=== PATIENT | female | born 1955 | race Caucasian/White ===

== ENCOUNTER 2016-09-01 14:16 | Inpatient (IN) | payer BC ==
--- NOTE | ~2016-09-01 | EHP ---
ER History and Physical [place] [address] [place]. [address] NAME: EVELYN OSUNA : 53 STATUS : DIS IN PAT#: [id number] AGE: 60 ADM/REG DATE : 09/01/16 MR#: [id number] REPORT SERV DATE: 11/04/16 DICTATED BY: KRISTIN EPPERSON DATE: 11/04/16 REPORT STATUS : Draft TRANSCRIBED BY: DEZ DATE: 11/04/16 ADDENDUM: The patient presented to the ER with history of altered mental status, fever, increased pain, high blood sugars, that history came from EMS and the facility that she was at. The patient is nonverbal and further history was not available and full review of systems was not available. JULIETTE/DEZ Kristin Epperson M.D. / [id number] CC: Joo Guerrero MD
--- NOTE | ~2016-09-01 | CN ---
Consultation Report [facility] [address] [place]. [address] NAME: EVELYN OSUNA : 53 STATUS : ADM IN PAT#: [id number] AGE: 60 ADM/REG DATE : 09/01/16 MR#: [id number] REPORT SERV DATE: 09/02/16 DICTATED BY: ANDREW CAM III DATE: 09/02/16 REPORT STATUS : Draft TRANSCRIBED BY: MODMariajose DATE: 09/02/16 DATE OF CONSULTATION: 09/02/2016 HISTORY OF PRESENT ILLNESS: The patient is a 60-year-old white female, well known to this physician from several other admissions in [facility], evaluation admitted today with sepsis, UTI, and infected decubitus ulcers and change in mental status. 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 She has had chronic debilitation with dysphagia and has been nonverbal except for grunts and hand shakes. She has been maintained with a feeding tube in her stomach and ileal conduit for her urinary diversion. She was noted to have over the last few days some fever and what was perceived as confusion. She usually can answer yes or shake her head, but was not really able to do that prior to admission. She was also noted to have more drainage from her ulcers. The patient's daughter states that she had been eating some pureed diet at skilled facility. 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 She has had a wound VAC to the heel in the past, but not recently. The patient has a colostomy, urostomy, and is diabetic type 2 insulin dependent. She has a neurogenic bladder which resulted in her needing the ileal conduit. PAST MEDICAL HISTORY: Consistent with the Friedreich's ataxia and history of coronary artery disease with prior stent placement. She has the diabetes and history of hypertension. She has had multiple decubiti in the past. She has had infections with MRSA Providencia, ESBL E. coli as well as Morganella morganii, ESBL Proteus. ALLERGIES: SHE IS ALLERGIC TO PENICILLIN AND CLINDAMYCIN. MEDICATIONS: At the nursing facility included Tylenol, Rocephin, Plavix, Pepcid, iron sulfate, Stewardson, Lantus, Levaquin, Ativan, Glucophage, Remeron, vitamins, Paxil, Lyrica, Xarelto, and Florastor. REVIEW OF SYSTEMS: 14-system review was not beneficial. SOCIAL HISTORY: Negative for alcohol, tobacco, and drugs. The patient was a resident of [facility] prior to transfer. PHYSICAL EXAMINATION: GENERAL: The patient is a debilitated white female, in no acute distress. HEENT: Not significant. She does not answer questions and she was only able to respond to the discomfort. HEART: She had tachycardia with no murmur. ABDOMEN: Soft with ostomies as described. Consultation Report [place] [id number] [place]. [address] NAME: EVELYN OSUNA : 53 STATUS : ADM IN [facility]#: [id number] AGE: 60 ADM/REG DATE : 09/01/16 MR#: [id number] REPORT SERV DATE: 09/02/16 DICTATED BY: ANDREW CAM III DATE: 09/02/16 REPORT STATUS : Draft TRANSCRIBED BY: DEZ DATE: 09/02/16 WOUNDS: She has a right heel ulcerated area that is 7 x 5 x 0.6 cm which is a Dias II with bone palpable, but much better than seen in the past without active infection noted. She has a right hip that is the most acutely ill that is with an open ulcers 4 x 5 x 4.5 stage IV ulceration with tunneling at 12 o'clock position that is 9 cm that extends up underneath the erythematous indurated area with a secondary opening with pus exuding. She has a left hip that has a 3.5 x 4 x 3.5, deep stage IV ulceration undermining circumferentially 3 to [address] with a soupy base. She has a sacral ulcer that is 5 x 4 x 0.6 area of partial skin loss stage II decubitus. IMPRESSION: She has sepsis likely multifactorial, but certainly could be related especially to the right hip which seems to be actively involved. Certainly, a likelihood that she has a urinary tract infection again which is pending. She has acute kidney injury and progressive Friedreich's ataxia considered to be in stated age, chronic anemia as well as dysphagia. I would recommend continued broad-spectrum antibiotics, local care offloading with a Clinitron bed. Try to improve nutrition per the tube feedings. LINK/JULISSAL Andrew Cam III, M.D. / [id number] CC: Jose R Jones M.D.
--- NOTE | ~2016-09-01 | IDS ---
Interim Discharge Summary [facility] [address] [place]. [address] NAME: EVELYN OSUNA : 53 STATUS : ADM IN [facility]#: [id number] AGE: 60 ADM/REG DATE : 09/01/16 MR#: [id number] REPORT SERV DATE: 09/06/16 DICTATED BY: DATE: REPORT STATUS : Draft TRANSCRIBED BY: MODL DATE: 09/06/16 ADMISSION DATE: 09/01/2016 DISCHARGE DATE: [facility] CONSULTANTS: Include Christiano Garcia M.D. of Infectious Disease and Dajuan Cam III, M.D. of Wound Surgery. CURRENT DIAGNOSES: 1. Severe sepsis, present at admission. 2. Fluid-responsive hypotension. 3. Acute kidney injury-resolved. 4. Catheter-associated urinary tract infection-chronic indwelling Zelaya catheter. Culture growing Providencia and extended-spectrum beta-lactamase Escherichia coli. 5. Stage III versus IV sacral decubitus ulcer and gluteal decubitus ulcer. No surgical debridement. Wound culture positive for Proteus, Enterococcus raffinosus, and diphtheroids. 6. Anemia of chronic inflammation-status post 1 unit packed red blood cells. 7. Uncontrolled insulin-dependent diabetes mellitus type 2-hemoglobin A1c 8.5. 8. Severe protein-calorie malnutrition-presently on tube feeds. 9. History of oropharyngeal dysphagia-recently consuming a pureed diet at detention facility. For formal speech therapy evaluation to assess the safety of this. 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 11.Coronary artery disease with prior stent. 12.History of hypertension. 13.Anxiety and dependence. 14.Recently diagnosed lower extremity deep vein thrombosis-June 2016. On Xarelto. 15.B12 deficiency-started on replacement. 16.Chemical code only. 17.History of colostomy. 18.History of ileal conduit and urostomy. IMAGIN. Portable chest x-ray 09/01/2016, shows no acute cardiopulmonary disease. 2. Bilateral lower extremity venous Doppler ultrasound 09/02/2016, negative for thrombus. PERTINENT LABS: Initial INR 2.3, initial hemoglobin 7.5, initial creatinine 1.6. Procalcitonin x2 negative. Lactate negative. LDH 56. Alkaline phosphatase 132, hemoglobin A1c 8.5, iron 21, iron-binding capacity 141, ferritin 514, folate 7.4, B12 of 273, TSH 4.4, free T4 of 1.15, cortisol 31. Initial white blood cell count 12.4. Wound cultures positive for Proteus, Enterococcus raffinosus, and diphtheroids. Urine culture positive for Providencia and extended-spectrum beta lactamase E. coli. Blood cultures times 4 negative since admission. BRIEF HISTORY: For full details, please see the previously dictated history of present Interim Discharge Summary [address] [address] NAME: EVELYN OSUNA : 53 STATUS : ADM IN PAT#: [id number] AGE: 60 ADM/REG DATE : 09/01/16 MR#: [id number] REPORT SERV DATE: 09/06/16 DICTATED BY: DATE: REPORT STATUS : Draft TRANSCRIBED BY: DEZ DATE: 09/06/[address] Becki Gagnon. This is a 60-year-old white female with severe progressive Friedreich's ataxia, who resides at the [facility] in [facility]. She was in her usual state of health until a few days before admission, when she began to display increased confusion, was less responsive, had a fever, and nursing staff there noted increased drainage from her decubitus ulcer. Evaluation in the emergency department revealed hypotension, severe sepsis, and probable ongoing wound infection as well as catheter- associated UTI. She was admitted to the Hospitalist Service for further management. HOSPITAL COURSE: The patient was admitted to the IMCU, placed on IV fluids, and initial antibiotics were meropenem and vancomycin. Past culture data was reviewed. The patient has a history of vancomycin-resistant Enterococcus as well as carbapenem-resistant organisms in the past, and so Infectious Disease was consulted to assist with the antibiotic regimen. They initially recommended continuation of vancomycin and meropenem, and changed antibiotics to cefepime and Flagyl on 09/04/2016, when culture data demonstrated growth of pathogens above. Dr. Cam was consulted to assist in management of the sacral and gluteal wounds. Unfortunately, the probability of healing these wounds is very low given the patient's functional paraplegia. This was discussed with the patient's daughter, and in fact hospice was encouraged, but she did not want to make her mother hospice measures at present because she saw that the patient was improving with fluids and antibiotics. Dr. Cam did not recommend any surgical debridement at present. The patient's urostomy bag and indwelling Zelaya catheter were changed at the time of admission. The patient's other medical issues have been largely stable this admission. The patient was able to be transferred out of the [facility] on the evening of 09/03/2016. She does demonstrate severe protein-calorie malnutrition with oropharyngeal dysphagia and nutrition consult was obtained in order to obtain tube feed recommendations. She currently is on continuous tube feeds. [facility]ly [facility], she takes tube feeds only intermittently and is able to meet the majority of her nutritional needs by mouth. The safety of this practice is questionable, and the efficacy is questionable as well given that pre-albumin was 7.0. Nonetheless, repeat speech therapy evaluation has been requested, so that we can definitively instruct the daughter on whether it is safe for her to give her mother foods by mouth or not. In response to continuous tube feeds, the patient's blood sugars became elevated, but this is currently controlled with adjustments in her insulin. Per Infectious Disease, the patient will require IV antibiotics through 09/10/2016. We were working towards discharging her back to her detention facility, but the patient's daughter is stating that she has some reservations about the care that her mother is receiving at that facility, and is seeking alternative placement. She is working with the case finishing machine adjuster on this. DISPOSITION: The patient remains hospitalized for additional IV antibiotics, speech therapy Interim Discharge Summary [address] [address] NAME: EVELYN OSUNA : 53 STATUS : ADM IN [facility]#: [id number] AGE: 60 ADM/REG DATE : 09/01/16 MR#: [id number] REPORT SERV DATE: 09/06/16 DICTATED BY: DATE: REPORT STATUS : Draft TRANSCRIBED BY: MODL DATE: 09/06/16 evaluation, and determination of discharge plan. BRENDA/DEZ Jose R Jones M.D. / [id number] CC: Jose R Jones M.D.
--- NOTE | ~2016-09-01 | IDS ---
Interim Discharge Summary [facility] [address] [place]. [address] NAME: EVELYN OSUNA : 53 STATUS : ADM IN [facility]#: [id number] AGE: 60 ADM/REG DATE : 09/01/16 MR#: [id number] REPORT SERV DATE: 09/13/16 DICTATED BY: ARTURO COATES DATE: 09/13/16 REPORT STATUS : Draft TRANSCRIBED BY: MODMariajose DATE: 09/13/16 ADMISSION DATE: 09/01/2016 DISCHARGE DATE: DIAGNOSES: 1. Sepsis. 2. Stage IV decubitus ulcers. 3. Encephalopathy. 4. Urinary tract infection. 5. Severe protein-calorie malnutrition. 6. History of chronic Friedreich's ataxia. 7. Acute kidney injury, resolved. 8. Type 2 diabetes. CONSULTANTS: 1. General Surgery/origination specialist, Dr. Dajuan Cam. 2. Infectious Disease, Dr. Christiano Garcia. HOSPITALISTS: Dr. Becki Gagnon, Dr. Jos eR Jones, Dr. Coates. HOSPITAL COURSE: Please see H and P from Dr. Gagnon and interim summary from Dr. Jones for further details. This is a 60-year-old female with a past medical history of chronic debility with Friedreich's ataxia, presented with UTI, sepsis, infected decubitus ulcers, and worsening mental status. The patient was admitted to the Hospitalist Service with a general surgery consultation for wound care. She was treated for acute kidney injury as well as sepsis. She was initiated on IV antibiotics for her urinary tract infection as well as wound cultures. The patient continues on antibiotics for treatment, however for her mental status, the patient had continued to remain nonverbal for several days with continue to cry and only moans. It was discussed with the patient's daughter concerning consideration of hospice. However, daughter was very reluctant and stated that she will discuss with the family, and still has not made a final decision at this time. However for the past two days, the patient has finally began to verbalize one-word phrases with better eye contact. She is alert. She states that, she is alright when asked how she is doing, and pain appears to be better controlled. Per origination specialist and wound care nurse, the patient's decubitus ulcers are appearing improved and not requiring I and D at this time. She continues with the wound care. The patient will be followed by Dr. Guerrero, who will attend to this patient's care. [facility]/DEZ Arturo Coates M.D. Interim Discharge Summary [address] [address] NAME: EVELYN OSUNA : 53 STATUS : ADM IN [facility]#: [id number] AGE: 60 ADM/REG DATE : 09/01/16 MR#: [id number] REPORT SERV DATE: 09/13/16 DICTATED BY: ARTURO COATES DATE: 09/13/16 REPORT STATUS : Draft TRANSCRIBED BY: DEZ DATE: 09/13/16 / [id number] CC: Arturo Coates M.D.
--- NOTE | ~2016-09-01 | CN ---
Consultation Report [facility] [address] [place]. [address] NAME: EVELYN OSUNA : 53 STATUS : ADM IN PAT#: [id number] AGE: 60 ADM/REG DATE : 09/01/16 MR#: [id number] REPORT SERV DATE: 09/14/16 DICTATED BY: ANDREW FINNEGAN DATE: 09/14/16 REPORT STATUS : Draft TRANSCRIBED BY: MODMariajose DATE: 09/14/16 PALLIATIVE CARE CONSULTATION DATE OF CONSULTATION: 09/14/2016 This is a 55-minute consultation divided. The patient was seen in followup with the patient's daughter, Shari. ALLERGIES: PENICILLINS, SULFA, WELL CLINDAMYCIN. REASON FOR CONSULTATION: A 60-year-old lady with progressive Friedreich ataxia, admitted on 09/01/2016 with alterations in mental status, signs of sepsis infections, and a stage IV decubitus in her buttocks. She is a assisted resident. Her daughter is quite insistent that she is not getting the care that she feels she needs. The patient was admitted with fever. She is normally able to say yes and no or least make those feelings known; however, she was not doing so on admission at this time. The patient is status post PEG 04/2015 with an ileal conduit, colostomy, and wound care, and requires total care. She has had prior heel osteomyelitis of the right heel and severe protein calorie malnutrition. PAST MEDICAL HISTORY: Includes insulin-dependant diabetes, coronary artery disease with a stent, multiple UTIs, hypertension, and mild CKD. She has had left hip, right heel, right great toe, and right 5th toe wounds. She is currently a variant code, receiving medications only and not receive CPR or defibrillation or ventilation or intubation. SOCIAL HISTORY: Nonsmoker and nondrinker. Her daughter Shari is her POA. She is . Hospice discussions have been attempted in the past. However, the patient's daughter basically indicates "I am not ready for that yet." When I asked her what would make her ready, she told me that if her mother had continuing infections that would not respond to treatment and even with hospitalization she did not improve that would be the point that she would consider hospice measures. FAMILY HISTORY: Remarkable for a son with Friedreich ataxia (brother of the POA). REVIEW OF SYSTEMS: System review is unobtainable. SIGNIFICANT LABORATORY WORK: Hemoglobin 7.2, hematocrit 23. Albumin 1.7, pre-albumin 13.7, low iron A1c is 8.5. PHYSICAL EXAMINATION: VITAL SIGNS: Blood pressure 131/63, respiratory rate 18, pulse 85 and regular, temperature 98 degrees, 2 L pulse ox 100%. BMI 23.8. Pain score is rated between 0, 1, 4/10 based upon facial expression. Her current weight is 147 pounds. GENERAL: Examination shows a chronically ill-appearing lady who is crying at intervals and then having incomprehensible utterances. At this point, I did call Shari and arranged to Consultation Report [address] [place]. [address] NAME: EVELYN OSUNA : 53 STATUS : ADM IN [facility]#: [id number] AGE: 60 ADM/REG DATE : 09/01/16 MR#: [id number] REPORT SERV DATE: 09/14/16 DICTATED BY: ANDREW FINNEGAN DATE: 09/14/16 REPORT STATUS : Draft TRANSCRIBED BY: DEZ DATE: 09/14/16 meet with her later in the day. The substance of above information is distilled from our conversation. At this point, the patient is about 50% edentulous. LUNGS: Her lungs are grossly clear. HEART: Regular rate and rhythm. ABDOMEN: Bowel sounds are present. PEG tube present. Ileostomy and ileal conduit are noted as is a colostomy. SKIN: Wounds were not examined. EXTREMITIES: Show trace to 1+ edema. Tone is diffusely decreased. IMPRESSION, PLAN, AND RECOMMENDATION: This is an unfortunate lady who is going to basically become a long-term resident of the [facility] at the recommendation of her time study analyst. A DNR is currently in effect with the exception of antibiotics according to her daughter, and I do not believe it has been written that way. We will be available to clarify this upon discharge. HUGO/DEZ Andrew Finnegan M.D. / [id number] CC: Joo Guerrero MD UNKNOWN
--- NOTE | ~2016-09-01 | HP ---
History And Physical [id number] [place]. [address] NAME: EVELYN OSUNA : 53 STATUS : ADM IN [facility]#: [id number] AGE: 60 ADM/REG DATE : 09/01/16 MR#: [id number] REPORT SERV DATE: 09/01/16 DICTATED BY: BECKI BLAKE DATE: 09/01/16 REPORT STATUS : Draft TRANSCRIBED BY: MODL DATE: 09/01/16 DATE OF ADMISSION: 09/01/2016 CHIEF COMPLAINT: Sepsis, UTI, infected decubitus ulcer, and increased confusion for a few days. HISTORY OF PRESENT ILLNESS: This is an unfortunate 60-year-old female, who has an extensive past medical history with progressive, debilitating, end-stage Friedreich ataxia, longstanding resident of [facility] in [place], [place], with chronic debilitation and dysphagia. The patient is nonverbal. She has a chronic PEG tube. She also has an ileal conduit who has been presenting today accompanied with her daughter who is giving the entire history from the care home facility where she received total care for her activities of daily living. For the last few days according to the daughter, she started to have some fever, worsening of her confusion. She usually can answer yes or no, and she has had drainage from her decubitus ulcer as well as signs of infection with fever. The patient's daughter is denying any nausea or vomiting, but she has fever and more confused than usual. According to the daughter, she eating a pureed diet at the care home [facility] and tube feeds at night. She did have a right heel osteomyelitis. [facility] by [facility] Cam, and she did have a Vac-Pac in the past, but no recently. Again, she has also a colostomy, urostomy, and diabetes type 2 insulin dependent. The patient did have a neurogenic bladder with resulting ileal conduit. The patient has been evaluated in the emergency room. She became hypotensive, but that resolved with vigorous IV hydration. After initial evaluation in the emergency room, Hospitalist Service has been asked for admission, further evaluation, and treatment. PAST MEDICAL HISTORY: Significant for Friedreich ataxia with chronic debility, coronary artery disease with prior stent, diabetes type 2 insulin dependent, history of hypertension. She does have a history of right heel osteomyelitis. She did have decubitus ulcer more on the right than on the left seen by Dr. Cam with anxiety with depression, prior infections with MRSA, Providencia, ESBL E coli, Morganella, ESBL, Proteus, urinary tract infections related to ileal conduit, dysphagia with PEG tube placement, as well as an ileal conduit. PAST SURGICAL HISTORY: PEG tube placement, colostomy, tubal ligation, and ileal conduit. ALLERGIES: THE PATIENT IS ALLERGIC TO PENICILLIN, SULFA, AND ALSO CLINDAMYCIN. MEDICATIONS: That she is taking at the care home facility include Tylenol, Rocephin 1 dose, Plavix, Pepcid, iron sulfate, [place], Lantus, Levaquin, Ativan, Glucophage, Remeron, multivitamin. Paxil, Lyrica, Xarelto, and Florastor. REVIEW OF SYSTEMS: A 14-point review of systems has been obtained and pertinent positive has been listed into the history of present illness. Otherwise, negative except those underlying above. SOCIAL HISTORY: No tobacco. No alcohol. No IV drugs. She is a resident at [address] [address] NAME: EVELYN OSUNA : 53 STATUS : ADM IN [facility]#: [id number] AGE: 60 ADM/REG DATE : 09/01/16 MR#: [id number] REPORT SERV DATE: 09/01/16 DICTATED BY: BECKI BLAKE DATE: 09/01/16 REPORT STATUS : Draft TRANSCRIBED BY: DEZ DATE: 09/01/16 [place], [place]. She is a . She has a daughter who helps care for her. Code status is limited, code only clinical, no intubation, no mechanical ventilation, no CPR according to patient's daughter wishes, who is the power of deputy prosecuting attorney. FAMILY HISTORY: Significant for Friedreich ataxia, stroke, diabetes, and cancer. PHYSICAL EXAMINATION: VITAL SIGNS: Currently, she has been afebrile in the emergency room, blood pressure was on arrival 81/51, heart rate was 114, respiratory rate 10-12, and saturating 98% on room air. GENERAL: Chronically ill-appearing, very debilitating female in no acute distress. She is alert and oriented x0. She does not follow any commands. She does not answer questions. HEENT: Show pupils are equal, round, and reactive to light. Extraocular movements intact. No JVD. No lymphadenopathy. Very dry mucous membranes. Trachea is midline. No cervical lymphadenopathy, inguinal or supraclavicular. CHEST: Eval shows bilateral air entry. Clear anteroposterior. No wheezes, crackles, or rhonchi appreciated. CARDIOVASCULAR: She is regular rate and rhythm. Slightly tachycardic. S1, S2 positive. No S3, no S4. No murmurs, rubs, or gallops appreciated. ABDOMEN: Soft. There is no tenderness, no guarding, no rebound. No hepatosplenomegaly appreciated. EXTREMITIES: No clubbing, cyanosis, or edema. The patient has significant decubitus ulcer on the right, it is deep one. It is at least 2-3 cm in diameter with some necrotic debris. Not really purulent drainage, but there are also breakdowns down the heels and otherwise no pallor or cyanosis appreciated. NEUROLOGIC: She is alert and oriented x0. She is not oriented to time or location. She cannot answer questions appropriately. LABORATORY DATA: Labs from today include an ABG shows 7.31, 34, 76. Her sodium is 136, potassium 4.2, chloride 107, CO2 of 18, BUN was 43, creatinine 1.61, glucose is 388. Her alkaline phosphatase 128, ALT 9, AST 10. Her lactate 1.5. Her white count 12.4, hemoglobin 7.5, hematocrit 33.7, and platelets are 529. INR is 2.3. UA is positive for nitrites as well as white cells and bacteria. Her blood cultures currently are pending. Urine cultures are pending, and wound cultures are pending as well and a chest x-ray, portable, is negative. ASSESSMENT AND PLAN: This is a very pleasant 60-year-old female, presenting to [facility] with fever, progressive encephalopathy and sepsis. 1. Sepsis, likely probable multifactorial, possibly related to urinary tract infection with chronic Zelaya catheter as well as possible infected decubitus ulcer. The patient has been in the past on broad-spectrum antibiotics, and she had a history of multidrug resistant bacteria. I am going to start initially on meropenem and vancomycin and consult Infectious Disease for further recommendation. 2. Likely urinary tract infection, related to her ileal conduit. I will check the urine culture, IV antibiotics, vigorous IV hydration. Check a CT scan of the abdomen and pelvis as well. 3. Right hip and left decubitus ulcers. We are going to consult Dr. Cam, obtain a wound care, and get wound cultures Gram stain and cultures. History And Physical [address] [address] NAME: EVELYN OSUNA : 53 STATUS : ADM IN PAT#: [id number] AGE: 60 ADM/REG DATE : 09/01/16 MR#: [id number] REPORT SERV DATE: 09/01/16 DICTATED BY: BECKI BLAKE DATE: 09/01/16 REPORT STATUS : Draft TRANSCRIBED BY: MODL DATE: 09/01/16 4. Acute kidney injury, likely multifactorial. We are going to place the patient on vigorous IV hydration. Strict I's and O's. Strict daily weights. 5. Progressive Matheus ataxia, rapidly progressive to end-stage disease. 6. Diabetes type 2, uncontrolled. Slight Accu-Cheks q.6 hours, Lantus twice a day, and check on hemoglobin A1c. 7. Dysphagia with percutaneous endoscopic gastrostomy tube. We will obtain a nutrition consult. 8. Anemia. We are going to check all her anemia studies, guaiac her stools, and transfuse 1 unit of packed red blood cells. We provide reasonable pain and nausea control as well as GI and DVT prophylaxis with SCDs. I am going to recheck ultrasound of the bilateral lower extremities and continue her Xarelto. Provide reasonable pain and nausea control as well as GI and DVT prophylaxis. The patient remains a clinical code according to the patient and daughter wishes well stated. It is worthwhile to note that the patient is going to be followed up by Dr. Jose R Jones. CF/MODL Becki Blake M.D. / [id number] CC: Joo Guerrero MD UNKNOWN
--- NOTE | ~2016-09-01 | DS ---
Discharge Summary [facility] [address] [place]. [address] NAME: EVELYN OSUNA : 53 STATUS : DIS IN PAT#: [id number] AGE: 60 ADM/REG DATE : 09/01/16 MR#: [id number] REPORT SERV DATE: 09/21/16 DICTATED BY: DATE: REPORT STATUS : Draft TRANSCRIBED BY: MODL DATE: 09/20/16 ADMISSION DATE: 09/01/2016 DISCHARGE DATE: 09/20/2016 DISCHARGE DIAGNOSIS: 1. Stage IV decubitus ulcers on bilateral hips as well sacrum. 2. Encephalopathy, resolved. 3. Sepsis, resolved. 4. ESBL Providencia urinary tract infection present on arrival, resolved. 5. Severe protein-calorie malnutrition. 6. Diabetes mellitus type 2. 7. Recent deep vein thrombosis, with the last 4-6 weeks. 8. History of Friedreich's ataxia. CONSULTING PHYSICIANS: Include, Dajuan Cam with Surgery for wound care management, Dr. Christiano Garcia with Infectious Disease. DISCHARGE MEDICATIONS: Include, ferrous sulfate 325 mg b.i.d. per PEG, fluticasone 2 sprays in each nostril b.i.d. folic acid 1 mg per PEG daily, Lantus 25 units subcu b.i.d., NovoLog sliding scale, Iodosorb Gel apply to sacrum q.48 hours, Cadexomer apply to left and right hip ulcers q.48 hours, Santyl ointment apply to right heel daily, vitamin B12 1000 mcg IM q.30 days, Pepcid 20 mg per PEG b.i.d., Remeron 50 mg per PEG at bedtime, multivitamin one tab per PEG every day, Paxil 20 mg per PEG daily, Lyrica 150 mg per PEG b.i.d., Xarelto 20 mg per PEG at bedtime, Florastor 250 mg per PEG b.i.d., metformin 1000 mg per PEG b.i.d., [place] 5/325 mg tablet 1-2 tablets p.o. or per PEG q.6 hours p.r.n. for pain, Ativan 0.5 mg per PEG q.6 hours p.r.n. for anxiety, aspirin 81 mg per PEG daily. IMAGING: The patient had a portable with chest x-ray on 09/14/2016, which demonstrated no evidence of an acute cardiopulmonary disease. For full H and P, please refer to Dr. Bryson Harmon's dictation on 09/01/2016. Please also see consultation dictations by Dr. Christiano Garcia as well as Dr. Dajuan Cam and also interim discharge summary dictated by Dr. Jose R Jones on 09/06/2016 and another interim discharge summary by Dr. Debo Andrews on 09/13/2016. HOSPITAL COURSE: I assumed care of this patient on 09/14/[address] Joo Guerrero. Since that time, the patient's sepsis and UTI had resolved. She completed her courses of antibiotics, Infectious Disease signed off. Her problems this week include failed swallow evaluation by Speech Therapy who recommended strict n.p.o. status versus palliative care due to extreme aspiration risk. The patient has been n.p.o. This evaluation was done 09/14/2016. We maintained hydration and feeding via PEG tube. Dr. Dajuan Finnegan was consulted for palliative care. He spoke with the patient's daughter extensively concerning palliative care versus aggressive treatment. Her daughter explains that she is "not ready for palliative care." The patient is a DNR. However, we are continuing treatment. Actually, she has a limited code with medication only. No intubation, chest compressions, mechanical ventilation, or defibrillation should be Discharge Summary [address] [address] NAME: EVELYN OSUNA : 53 STATUS : DIS IN PAT#: [id number] AGE: 60 ADM/REG DATE : 09/01/16 MR#: [id number] REPORT SERV DATE: 09/21/16 DICTATED BY: DATE: REPORT STATUS : Draft TRANSCRIBED BY: MODL DATE: 09/20/16 performed. The patient also has anemia of chronic disease. Her hemoglobin was steadily trending down during her hospital stay. On 09/15/2016, her hemoglobin was 6.8. Transfused 2 units of packed red blood cells. Today, her hemoglobin is 11.1 and 35.3. The patient is on Plavix for coronary stents of unknown type. She also is taking Xarelto for recent DVT that occurred 4-6 weeks ago. I discussed whether we should continue these medications with Dr. Joo Guerrero considering her hemoglobin of 6.8. Due to her recent history of DVT and no active bleeding noted. We decided to continue her Xarelto to prevent DVT. However, we changed her Plavix to aspirin 81 mg. Likely, her anemia is due to anemia of chronic disease. Since she responded to the 2 units of packed red blood cells and has not had further decline in her hemoglobin and hematocrit. Her blood sugars have been labile this week. I have adjusted her insulin accordingly. She has been hypoglycemic multiple times as well as hyperglycemic. Her sugars have been difficult to control for multiple reasons: Her Levemir has been held multiple times by the nursing staff apparently due to "the possibility of hypoglycemia." However, this has caused reflex hyperglycemia, so education is needed. Her blood sugars in the last 24 hours have been controlled ranging from 108 to 248. I will continue NovoLog sliding scale as well as her Lantus 25 units b.i.d. as she took prior to admission. Now that she is n.p.o., I will change her blood glucose checks to q.6 hours and discontinue her prandial insulin dosing. I will continue her wound VAC and wound care post discharge. She will follow up with Dr. Dajuan Cam as needed. This discharge took greater than 30 minutes due to coordination with case management, medication reconciliation, and overall coordinating the discharge plan. GABRIELLA/MODL Abdi Shah NP / [id number] CC: Dajuan Cam III, M.D.
--- NOTE | ~2016-09-01 | CN ---
Consultation Report [facility] [address] [place]. [address] NAME: EVELYN OSUNA : 53 STATUS : ADM IN PAT#: [id number] AGE: 60 ADM/REG DATE : 09/01/16 MR#: [id number] REPORT SERV DATE: 09/02/16 DICTATED BY: MAHESH BECKHAM DATE: 09/02/16 REPORT STATUS : Draft TRANSCRIBED BY: MODL DATE: 09/02/16 INFECTIOUS DISEASE CONSULTATION DATE OF CONSULTATION: REASON FOR REFERRAL: Evaluation and treatment of probable sepsis. HISTORY OF PRESENT ILLNESS: The patient is a 60-year-old female unfortunately with a progressive debilitating neurological disease in the form of Friedreich ataxia. It has left her bedbound, nonverbal, and almost constant pain. She resides in long-term care facility in [place]. She has had frequent admissions in the past for infection, including the genitourinary tract and multiple decubitus ulcers. She has been followed for extended period in the wound care center though because of the nature of her disease, virtually incurable decubitus ulcers. She comes in now with fever and declining mental status. She had cultures taken, and she has been started empirically on vancomycin and Merrem. Her blood cultures thus far are negative. Her urine shows just moderate abnormalities, it is growing two gram-negative rods, and it is probably just her baseline because of her chronic indwelling Zelaya. She has multiple decubitus ulcers of sacrum, both hips, and heel. She has been evaluated by Dr. Cam and closely examined. The heel really does not appear to be infected. The sacrum is stage II. Both hips are stage IV, but the right had redness and pus and suggested acute infection, that has been submitted for cultures yesterday afternoon and is growing gram-negative rods, one of which is almost certainly Proteus and a gram- positive cocci, which is Enterococcus, and possibly a second gram-positive cocci still to be identified. PAST MEDICAL HISTORY: Otherwise, unremarkable. MEDICATIONS: As mentioned, she has been started on vancomycin and meropenem based on past sensitivities. ALLERGIES: SHE HAS HAD ALLERGIC REACTIONS TO PENICILLIN, SULFA, AND CLINDAMYCIN. SOCIAL HISTORY: Debilitated as previously mentioned and resident of long-term care [facility]. FAMILY HISTORY: Noncontributory. PHYSICAL EXAMINATION: GENERAL: She is an adult female, lying in bed. Unable to speak to make any communication, constantly moaning or screaming. VITAL SIGNS: Her temperature here at present 97.8, the highest she reached last night was 98.6; pulse 101; respirations 16; blood pressure 111/60; weight 68 kg. HEENT: Sclerae clear. Mouth has dry mucous membranes, but no acute-appearing lesions. NECK: Without lymphadenopathy. LUNGS: Clear anteriorly. Consultation Report [address] [place]. [address] NAME: EVELYN OSUNA : 53 STATUS : ADM IN PAT#: [id number] AGE: 60 ADM/REG DATE : 09/01/16 MR#: [id number] REPORT SERV DATE: 09/02/16 DICTATED BY: MAHESH BECKHAM DATE: 09/02/16 REPORT STATUS : Draft TRANSCRIBED BY: DEZ DATE: 09/02/16 HEART: Regular rate and rhythm. ABDOMEN: Slightly distended. No reaction to palpation. Has a colostomy, an ileal conduit, but the sites look okay. She has a PEG as well, it does not appear to be infected. EXTREMITIES: Decubitus ulcers on the extremities, hips and sacrum as previously described. LABORATORY DATA: White blood cell count 12.4 when she came in and 12.6 today with hematocrit 29.6, platelets 453, differential 64 segs and 15% bands. BUN and creatinine 43 and 1.61. IMPRESSION: A septic presentation of the patient with a progressive irreversible neurological disease. The most likely source would appear to be the right hip. The other decubitus ulcers do not appear to be acutely infected, and her urine is such that it looks like the baseline in a patient with an ileal conduit. I see no other likely source at this time. RECOMMENDATIONS: 1. Any surgical procedures for decubitus, we will defer to Dr. Cam. 2. Agree for now with vancomycin and meropenem. 3. Discussed with family, consider not treating this at all in light of her condition and prognosis. 4. Finally, I will follow the patient with you. I appreciate very much your consulting on this patient. KYLE Mahesh Beckham M.D. / [id number] CC: Jose R Jones M.D.
[2016-09-01 13:31] LABS: ALLENS TEST Pos; BE (BASE EXCESS) -8.8 MEQ/L (0 +/- 2.5); CARBOXYHEMOGLOBIN 2.1 % (0-3); HCO3 (ACTUAL BICARBONATE) 16.7 MEQ/L (23-27); HEMOBLOGIN CONTENT 7.7 G/DL (12-16); INSTRUMENT SERIAL # 8087; METHEMOGLOBIN 0.4 % (0-3); O2 CONTENT 10.1 VOL% (18-24); PCO2 (CO2 TENSION) 34 MMHG (35-45); PO2 (O2 TENSION) 76 MMHG (79-93); SAMPLE Arterial; pH 7.31 (7.37-7.43)
[2016-09-01 13:44] LABS: HEMOGLOBIN 7.5 g/dL (12.0-16.0); MEAN CORPUS HGB CONC 31.6 g/dL (32.0-36.0); MEAN PLATELET VOLUME 8.7 fL (9.2-13.0); RBC DISTRIBUTION WIDTH 16.6 % (12.0-16.0)
[2016-09-01 13:46] LABS: ER CBC TAT 0 Hrs 08 Mins; HEMATOCRIT 23.7 % (36.0-48.0); MANUAL DIFF YES %; PLATELET COUNT 526 10/3/uL (150-400); WHITE BLOOD CELLS 12.4 10/3/uL (4.5-10.5)
[2016-09-01 13:50] LABS: ASCORBIC ACID (UR NOT ORDER) NEG (NEG); BILIRUBIN, URINE NEGATIVE (NEG); ER URINALYSIS TAT 0 Hrs 12 Mins; INTERNATIONAL NORMAL RATI 2.3 UNITS (-); KETONE, URINE NEGATIVE (NEG); LEUKOCYTE ESTERASE(NOT OR LARGE (NEG); NITRITE (URINE) POS (NEG); PARTIAL THROMBO TIME 44.4 SEC (22.5-37.2); WBC (NOT ORDERED) (RFLEX) 24 (0-5)
[2016-09-01 13:51] LABS: PROTIME (NOT ORD) 25.2 SEC (12.0-14.5)
[2016-09-01 14:03] LABS: LACTATE 1.5 MMOL/L (0.3-2.4)
[2016-09-01 14:04] LABS: ALBUMIN 1.8 G/DL (3.5-5.0); CALCIUM, SERUM 8.9 MG/DL (8.5-10.4); CHLORIDE, SERUM 107 MMOL/L (96-112); EOSINOPHILS 1 %; EOSINOPHILS ABSOLUTE (CALC) 0.12 10/3/uL (0.0-0.53); ER DIFF TAT 0 Hrs 26 Mins; LYMPHOCYTES 16 %; LYMPHOCYTES ABSOLUTE (CALC) 1.98 10/3/uL (0.67-4.30); MONOCYTES 2 %; MONOCYTES ABSOLUTE (CALC) 0.25 10/3/uL (0.21-1.20); NEUTROPHILS ABSOLUTE (CALC) 10.04 10/3/uL (2.02-8.40); PLATELET ESTIMATE SLT INC (ADEQUATE); POTASSIUM, SERUM 4.2 MMOL/L (3.5-5.3); SEGMENTED NEUTROPHIL (0) 81 %; SGOT(AST) 10 U/L (5-40); SGPT(ALT) 9 U/L (5-65); SODIUM, SERUM 136 MMOL/L (135-148); TOTAL NUCLEATED CELLS 100; TOTAL PROTEIN 6.6 G/DL (6.0-8.5)
[2016-09-01 14:05] LABS: HYPOCHROMIA 1+ (3-10/OIF) (0-2/OIF)
[~2016-09-01 14:16] MED LIST: AMB10 PO; ASA5GR PO; ASAB PO; ASABAYER PO; ATEN25 PEG; ATEN25 PO; CENTRUM PO; CIMETIDINE400 MG PEG; CIMETIDINE400 MG PO; FERROUS SULF325 M1 PEG; FERROUS SULF325 M1 PO; FLEX PEG; FLEX PO; FLORASTOR250 MG PO; GLUCOPHAGE1000 MG PEG; GLUCOPHAGE1000 MG PO; GLUCPH PO; HCTZ12.5 PO; HUMALOG SC; HYCODAN1 M1 PO; KDUR10 PO; KEPPRAINJ PO; L20 PO; L40 PO; LANTUS SC; LANTUSCART SC; LASIX 40 MG IV; LOVENOX80 SC; LYRICA150 MG PEG; LYRICA150 MG PO; LYRICA75 PO; MULTIVITAMI1 PO; NORCO1 TAB PO; NYSTOP100000 MG TOP; PAX20 PO; PAXIL30 MG PEG; PAXIL30 MG PO; PEP20 PO; PLAVIX PO; SANTYL250 MG/GM TOP; VASOTEC10 PO; [UNRECOGNIZED DRUG - OTHER]; [UNRECOGNIZED DRUG - OTHER] IV
[2016-09-01 14:22] LABS: BUN (BLOOD UREA NITROGEN) 43 MG/DL (6-23); CO2 (CARBON DIOXIDE) 18 MMOL/L (24-34)
[2016-09-01 14:23] LABS: A/G RATIO 0.4 (0.7-1.9); ALKALINE PHOSPHATASE 128 U/L (45-117); CREATININE 1.61 MG/DL (0.55-1.02); GFR AFRICAN AMERICAN 40 ML/MIN (>=60); GFR NON AFRICAN AMERICAN 34 ML/MIN (>=60); GLOBULIN 4.8 G/DL (2.5-4.1); GLUCOSE, SERUM 388 MG/DL (60-99); TOTAL BILIRUBIN 0.1 MG/DL (0-1.2)
[2016-09-01] MEDS ORDERED: PEP20 PEG (15:02)
[2016-09-01] MEDS ORDERED: PLAVIX PEG (15:02)
[2016-09-01] MEDS ORDERED: FERROUS SULF325 M1 PEG (15:03)
[2016-09-01] MEDS ORDERED: FLORASTOR250 MG PEG (15:03)
[2016-09-01] MEDS ORDERED: LYRICA150 MG PEG (15:03)
[2016-09-01] MEDS ORDERED: GLUCOPHAGE1000 MG PEG (15:04)
[2016-09-01] MEDS ORDERED: REM15 PEG (15:05)
[2016-09-01] MEDS ORDERED: MULTIVIT/MIN PEG (15:05)
[2016-09-01] MEDS ORDERED: PAX20 PEG (15:06)
[2016-09-01] MEDS ORDERED: XARELTO20 MG PEG (15:06)
[2016-09-01] MEDS ORDERED: LEVAQUIN750 MG PEG (15:08)
[2016-09-01] MEDS ORDERED: NORCO1 TA1 PEG ×2 (15:09→15:16)
[2016-09-01] MEDS ORDERED: LANTUS SC (15:11)
[2016-09-01] MEDS ORDERED: ATV.5 PEG (15:15)
[2016-09-01] MEDS ORDERED: 8 HOUR650 MG PEG (15:16)
[2016-09-01] MEDS ORDERED: ACETSUP650 PR (15:19)
[2016-09-01] MEDS ORDERED: ROCEPH IM (15:23)
[2016-09-01 16:44] LABS: PROCALCITONIN 0.29 ng/mL (<0.5)
[2016-09-01 21:26] LABS: INTERNATIONAL NORMAL RATI 1.8 UNITS (-); PARTIAL THROMBO TIME 38.5 SEC (22.5-37.2)
[2016-09-01 21:37] LABS: B NATRIURETIC PEPTIDE (BNP) 12.9 PG/ML (< 100.0)
[2016-09-01 21:39] LABS: PROTIME (NOT ORD) 20.8 SEC (12.0-14.5)
[2016-09-01 21:53] LABS: PROCALCITONIN 0.22 ng/mL (<0.5)
[2016-09-01 21:58] LABS: ALKALINE PHOSPHATASE 132 U/L (45-117); DIRECT BILIRUBIN < 0.1 MG/DL (0.0-0.4); FERRITIN 514 NG/ML (8-252); FOLATE 7.4 NG/ML (>5.2); FREE T4 1.15 NG/DL (0.76-1.46); INDIRECT BILIRUBIN(NOT ORDER) 0.1 MG/DL (0.1-0.9); IRON BINDING CAPACITY 141 MCG/DL (225-410); IRON, SERUM 21 MCG/DL (35-150); PHOSPHORUS, SERUM 2.1 MG/DL (2.5-4.5); SGOT(AST) 8 U/L (5-40); SGPT(ALT) 8 U/L (5-65); TOTAL BILIRUBIN 0.2 MG/DL (0-1.2); TOTAL PROTEIN 7.1 G/DL (6.0-8.5); TROPONIN I 0.02 NG/ML (<0.05)
[2016-09-01 22:29] LABS: GLYCOHEMOGLOBIN (HbA1c) 8.5 % (4.7-6.1)
[2016-09-01 23:54] LABS: ASCORBIC ACID (UR NOT ORDER) NEG (NEG); BILIRUBIN, URINE NEGATIVE (NEG); KETONE, URINE NEGATIVE (NEG); LEUKOCYTE ESTERASE(NOT OR MOD (NEG); WBC (NOT ORDERED) (RFLEX) 23 (0-5)
[2016-09-02 01:21] LABS: CREATININE, URINE 60.6 MG/DL
[2016-09-02 09:58] LABS: MEAN CORPUS HGB CONC 30.7 g/dL (32.0-36.0); MEAN CORPUSCULAR HEMOGLOB 25.4 pg (26.0-34.0); MEAN PLATELET VOLUME 8.8 fL (9.2-13.0); PLATELET COUNT 453 10/3/uL (150-400); RBC DISTRIBUTION WIDTH 16.2 % (12.0-16.0); RED CELL COUNT 3.58 10/6/uL (4.0-5.6); WHITE BLOOD CELLS 12.6 10/3/uL (4.5-10.5)
[2016-09-02 10:00] LABS: HEMATOCRIT 29.6 % (36.0-48.0); HEMOGLOBIN 9.1 g/dL (12.0-16.0); MEAN CORPUSCULAR VOLUME 82.7 fL (80-100)
[2016-09-02 10:04] LABS: MANUAL DIFF YES %
[2016-09-02 10:57] LABS: BAND NEUTROPHILS 15 %; EOSINOPHILS 2 %; EOSINOPHILS ABSOLUTE (CALC) 0.25 10/3/uL (0.0-0.53); IMMATURE GRANS ABSOLUTE (CALC) 0.13 10/3/uL (0.0-0.11); LYMPHOCYTES 17 %; LYMPHOCYTES ABSOLUTE (CALC) 2.14 10/3/uL (0.67-4.30); METAMYELOCYTES 1 %; MONOCYTES 1 %; MONOCYTES ABSOLUTE (CALC) 0.13 10/3/uL (0.21-1.20); NEUTROPHILS ABSOLUTE (CALC) 9.95 10/3/uL (2.02-8.40); PLATELET ESTIMATE SLT INC (ADEQUATE); SEGMENTED NEUTROPHIL (0) 64 %; TOTAL NUCLEATED CELLS 100
[2016-09-02 10:58] LABS: RBC MORPHOLOGY NORM (NORMAL)
[2016-09-02 13:35] LABS: A/G RATIO 0.3 (0.7-1.9); ALBUMIN 1.8 G/DL (3.5-5.0); ALKALINE PHOSPHATASE 124 U/L (45-117); CALCIUM, SERUM 8.6 MG/DL (8.5-10.4); CHLORIDE, SERUM 113 MMOL/L (96-112); CO2 (CARBON DIOXIDE) 17 MMOL/L (24-34); CREATININE 1.38 MG/DL (0.55-1.02); GFR AFRICAN AMERICAN 48 ML/MIN (>=60); GFR NON AFRICAN AMERICAN 41 ML/MIN (>=60); GLOBULIN 5.2 G/DL (2.5-4.1); POTASSIUM, SERUM 3.7 MMOL/L (3.5-5.3); SGOT(AST) 16 U/L (5-40); SGPT(ALT) 10 U/L (5-65); SODIUM, SERUM 140 MMOL/L (135-148); TOTAL BILIRUBIN 0.2 MG/DL (0-1.2)
[2016-09-02 13:36] LABS: BUN (BLOOD UREA NITROGEN) 35 MG/DL (6-23); GLUCOSE, SERUM 118 MG/DL (60-99)
[2016-09-02 19:27] LABS: PHOSPHORUS, SERUM 2.4 MG/DL (2.5-4.5)
[2016-09-03 04:45] LABS: BUN (BLOOD UREA NITROGEN) 35 MG/DL (6-23); CALCIUM, SERUM 8.2 MG/DL (8.5-10.4); CHLORIDE, SERUM 113 MMOL/L (96-112); CO2 (CARBON DIOXIDE) 19 MMOL/L (24-34); CREATININE 1.13 MG/DL (0.55-1.02); GFR AFRICAN AMERICAN 61 ML/MIN (>=60); GFR NON AFRICAN AMERICAN 52 ML/MIN (>=60); GLUCOSE, SERUM 117 MG/DL (60-99); POTASSIUM, SERUM 4.1 MMOL/L (3.5-5.3); SODIUM, SERUM 143 MMOL/L (135-148)
[2016-09-03 06:39] LABS: HEMATOCRIT 29.6 % (36.0-48.0); MEAN CORPUS HGB CONC 30.4 g/dL (32.0-36.0); MEAN CORPUSCULAR HEMOGLOB 25.4 pg (26.0-34.0); MEAN CORPUSCULAR VOLUME 83.6 fL (80-100); MEAN PLATELET VOLUME 9.1 fL (9.2-13.0); PLATELET COUNT 484 10/3/uL (150-400); RBC DISTRIBUTION WIDTH 16.5 % (12.0-16.0); RED CELL COUNT 3.54 10/6/uL (4.0-5.6); WHITE BLOOD CELLS 10.1 10/3/uL (4.5-10.5)
[2016-09-03 06:40] LABS: MANUAL DIFF YES %
[2016-09-03 07:21] LABS: EOSINOPHILS 10 %; EOSINOPHILS ABSOLUTE (CALC) 1.01 10/3/uL (0.0-0.53); LYMPHOCYTES 16 %; LYMPHOCYTES ABSOLUTE (CALC) 1.62 10/3/uL (0.67-4.30); MONOCYTES 2 %; NEUTROPHILS ABSOLUTE (CALC) 7.27 10/3/uL (2.02-8.40); PLATELET ESTIMATE SLT INC (ADEQUATE); RBC MORPHOLOGY NORM (NORMAL); SEGMENTED NEUTROPHIL (0) 72 %; TOTAL NUCLEATED CELLS 100
[2016-09-04 05:39] LABS: HEMOGLOBIN 7.7 g/dL (12.0-16.0); MANUAL DIFF YES %; MEAN CORPUS HGB CONC 32.1 g/dL (32.0-36.0); MEAN CORPUSCULAR HEMOGLOB 25.9 pg (26.0-34.0); MEAN CORPUSCULAR VOLUME 80.8 fL (80-100); MEAN PLATELET VOLUME 8.7 fL (9.2-13.0); PLATELET COUNT 471 10/3/uL (150-400); RBC DISTRIBUTION WIDTH 16.7 % (12.0-16.0); RED CELL COUNT 2.97 10/6/uL (4.0-5.6); WHITE BLOOD CELLS 9.1 10/3/uL (4.5-10.5)
[2016-09-04 05:49] LABS: BUN (BLOOD UREA NITROGEN) 31 MG/DL (6-23); CALCIUM, SERUM 8.1 MG/DL (8.5-10.4); CHLORIDE, SERUM 113 MMOL/L (96-112); CO2 (CARBON DIOXIDE) 23 MMOL/L (24-34); CREATININE 1.14 MG/DL (0.55-1.02); GFR AFRICAN AMERICAN 60 ML/MIN (>=60); GFR NON AFRICAN AMERICAN 52 ML/MIN (>=60); GLUCOSE, SERUM 197 MG/DL (60-99); SODIUM, SERUM 144 MMOL/L (135-148)
[2016-09-04 06:14] LABS: BAND NEUTROPHILS 2 %; EOSINOPHILS 6 %; EOSINOPHILS ABSOLUTE (CALC) 0.55 10/3/uL (0.0-0.53); IMMATURE GRANS ABSOLUTE (CALC) 0.36 10/3/uL (0.0-0.11); LYMPHOCYTES 28 %; LYMPHOCYTES ABSOLUTE (CALC) 2.55 10/3/uL (0.67-4.30); METAMYELOCYTES 3 %; MONOCYTES 8 %; MONOCYTES ABSOLUTE (CALC) 0.73 10/3/uL (0.21-1.20); MYELOCYTES 1 %; NEUTROPHILS ABSOLUTE (CALC) 4.91 10/3/uL (2.02-8.40); PLATELET ESTIMATE SLT INC (ADEQUATE); SEGMENTED NEUTROPHIL (0) 52 %; TOTAL NUCLEATED CELLS 100
[2016-09-04 06:15] LABS: ANISOCYTOSIS 1+ (5-10/OIF) (0-5/OIF); MICROCYTES 1+ (5-10/OIF) (0-5/OIF); POLYCHROMASIA 1+ (2-5/OIF) (0-1/OIF); TEARDROP SHAPED RBCS OCC (0-2/OIF); TOXIC GRANULATION SLT; VACUOLATED NEUTROPHILES OCC
[2016-09-05 05:39] LABS: HEMOGLOBIN 7.3 g/dL (12.0-16.0); MEAN CORPUSCULAR HEMOGLOB 25.4 pg (26.0-34.0); MEAN PLATELET VOLUME 8.7 fL (9.2-13.0); PLATELET COUNT 445 10/3/uL (150-400); RBC DISTRIBUTION WIDTH 17.3 % (12.0-16.0); RED CELL COUNT 2.87 10/6/uL (4.0-5.6); WHITE BLOOD CELLS 8.1 10/3/uL (4.5-10.5)
[2016-09-05 05:40] LABS: MANUAL DIFF YES %; MEAN CORPUS HGB CONC 30.4 g/dL (32.0-36.0); MEAN CORPUSCULAR VOLUME 83.6 fL (80-100)
[2016-09-05 06:19] LABS: ANISOCYTOSIS 1+ (5-10/OIF) (0-5/OIF); EOSINOPHILS 2 %; EOSINOPHILS ABSOLUTE (CALC) 0.16 10/3/uL (0.0-0.53); IMMATURE GRANS ABSOLUTE (CALC) 0.65 10/3/uL (0.0-0.11); LYMPHOCYTES 33 %; LYMPHOCYTES ABSOLUTE (CALC) 2.67 10/3/uL (0.67-4.30); METAMYELOCYTES 3 %; MONOCYTES 3 %; MONOCYTES ABSOLUTE (CALC) 0.24 10/3/uL (0.21-1.20); MYELOCYTES 5 %; NEUTROPHILS ABSOLUTE (CALC) 4.37 10/3/uL (2.02-8.40); PLATELET ESTIMATE SLT INC (ADEQUATE); SEGMENTED NEUTROPHIL (0) 54 %; TOTAL NUCLEATED CELLS 100
[2016-09-05 06:20] LABS: RBC MORPHOLOGY ABN (NORMAL)
[2016-09-05 07:02] LABS: ALBUMIN 1.6 G/DL (3.5-5.0); BUN (BLOOD UREA NITROGEN) 32 MG/DL (6-23); CALCIUM, SERUM 8.9 MG/DL (8.5-10.4); CHLORIDE, SERUM 111 MMOL/L (96-112); CO2 (CARBON DIOXIDE) 24 MMOL/L (24-34); CREATININE 1.09 MG/DL (0.55-1.02); GFR AFRICAN AMERICAN 63 ML/MIN (>=60); GFR NON AFRICAN AMERICAN 55 ML/MIN (>=60); GLUCOSE, SERUM 318 MG/DL (60-99); PHOSPHORUS, SERUM 2.8 MG/DL (2.5-4.5); POTASSIUM, SERUM 4.3 MMOL/L (3.5-5.3); SODIUM, SERUM 143 MMOL/L (135-148)
[2016-09-06 06:17] LABS: MEAN CORPUS HGB CONC 31.3 g/dL (32.0-36.0); MEAN CORPUSCULAR HEMOGLOB 25.4 pg (26.0-34.0); MEAN CORPUSCULAR VOLUME 81.1 fL (80-100); MEAN PLATELET VOLUME 8.7 fL (9.2-13.0); RBC DISTRIBUTION WIDTH 16.9 % (12.0-16.0); WHITE BLOOD CELLS 10.9 10/3/uL (4.5-10.5)
[2016-09-06 06:19] LABS: HEMATOCRIT 28.8 % (36.0-48.0); MANUAL DIFF YES %; PLATELET COUNT 591 10/3/uL (150-400); RED CELL COUNT 3.55 10/6/uL (4.0-5.6)
[2016-09-06 07:12] LABS: ANISOCYTOSIS 1+ (5-10/OIF) (0-5/OIF); BAND NEUTROPHILS 7 %; HYPOCHROMIA 1+ (3-10/OIF) (0-2/OIF); IMMATURE GRANS ABSOLUTE (CALC) 0.65 10/3/uL (0.0-0.11); LYMPHOCYTES 30 %; LYMPHOCYTES ABSOLUTE (CALC) 3.27 10/3/uL (0.67-4.30); METAMYELOCYTES 5 %; MONOCYTES 7 %; MONOCYTES ABSOLUTE (CALC) 0.76 10/3/uL (0.21-1.20); MYELOCYTES 1 %; NEUTROPHILS ABSOLUTE (CALC) 6.21 10/3/uL (2.02-8.40); PLATELET ESTIMATE INC (ADEQUATE); SEGMENTED NEUTROPHIL (0) 50 %; TOTAL NUCLEATED CELLS 100
[2016-09-07 06:44] LABS: HEMATOCRIT 26.8 % (36.0-48.0); HEMOGLOBIN 8.6 g/dL (12.0-16.0); MANUAL DIFF YES %; MEAN CORPUS HGB CONC 32.1 g/dL (32.0-36.0); MEAN PLATELET VOLUME 8.7 fL (9.2-13.0); PLATELET COUNT 575 10/3/uL (150-400); RBC DISTRIBUTION WIDTH 17.3 % (12.0-16.0); RED CELL COUNT 3.31 10/6/uL (4.0-5.6); WHITE BLOOD CELLS 10.5 10/3/uL (4.5-10.5)
[2016-09-07 06:56] LABS: ALBUMIN 1.5 G/DL (3.5-5.0); CHLORIDE, SERUM 108 MMOL/L (96-112); CO2 (CARBON DIOXIDE) 26 MMOL/L (24-34); CREATININE 0.92 MG/DL (0.55-1.02); GFR AFRICAN AMERICAN 78 ML/MIN (>=60); GFR NON AFRICAN AMERICAN 67 ML/MIN (>=60); PHOSPHORUS, SERUM 3.3 MG/DL (2.5-4.5); POTASSIUM, SERUM 4.6 MMOL/L (3.5-5.3); SODIUM, SERUM 141 MMOL/L (135-148)
[2016-09-07 06:57] LABS: BUN (BLOOD UREA NITROGEN) 37 MG/DL (6-23); GLUCOSE, SERUM 102 MG/DL (60-99)
[2016-09-07 07:13] LABS: BAND NEUTROPHILS 9 %; IMMATURE GRANS ABSOLUTE (CALC) 0.74 10/3/uL (0.0-0.11); LYMPHOCYTES 31 %; LYMPHOCYTES ABSOLUTE (CALC) 3.26 10/3/uL (0.67-4.30); METAMYELOCYTES 5 %; MONOCYTES 7 %; MONOCYTES ABSOLUTE (CALC) 0.74 10/3/uL (0.21-1.20); MYELOCYTES 2 %; NEUTROPHILS ABSOLUTE (CALC) 5.78 10/3/uL (2.02-8.40); SEGMENTED NEUTROPHIL (0) 46 %; TOTAL NUCLEATED CELLS 100
[2016-09-07 07:14] LABS: ANISOCYTOSIS 1+ (5-10/OIF) (0-5/OIF); HYPOCHROMIA 1+ (3-10/OIF) (0-2/OIF); MACROCYTES 1+ (5-10/OIF) (0-5/OIF); PLATELET ESTIMATE SLT INC (ADEQUATE)
[2016-09-09 08:46] LABS: HEMOGLOBIN 8.4 g/dL (12.0-16.0); MEAN CORPUS HGB CONC 31.1 g/dL (32.0-36.0); MEAN CORPUSCULAR HEMOGLOB 25.5 pg (26.0-34.0); MEAN CORPUSCULAR VOLUME 81.8 fL (80-100); MEAN PLATELET VOLUME 8.9 fL (9.2-13.0); PLATELET COUNT 570 10/3/uL (150-400); RBC DISTRIBUTION WIDTH 17.2 % (12.0-16.0); WHITE BLOOD CELLS 11.4 10/3/uL (4.5-10.5)
[2016-09-09 08:52] LABS: MANUAL DIFF YES %
[2016-09-09 08:59] LABS: A/G RATIO 0.4 (0.7-1.9); ALBUMIN 1.7 G/DL (3.5-5.0); CALCIUM, SERUM 8.4 MG/DL (8.5-10.4); CHLORIDE, SERUM 105 MMOL/L (96-112); CO2 (CARBON DIOXIDE) 24 MMOL/L (24-34); CREATININE 0.85 MG/DL (0.55-1.02); GFR AFRICAN AMERICAN 86 ML/MIN (>=60); GFR NON AFRICAN AMERICAN 74 ML/MIN (>=60); GLOBULIN 4.7 G/DL (2.5-4.1); GLUCOSE, SERUM 96 MG/DL (60-99); PHOSPHORUS, SERUM 3.1 MG/DL (2.5-4.5); POTASSIUM, SERUM 4.3 MMOL/L (3.5-5.3); SGOT(AST) 15 U/L (5-40); SGPT(ALT) 8 U/L (5-65); SODIUM, SERUM 138 MMOL/L (135-148); TOTAL BILIRUBIN 0.2 MG/DL (0-1.2); TOTAL PROTEIN 6.4 G/DL (6.0-8.5)
[2016-09-09 09:00] LABS: ALKALINE PHOSPHATASE 102 U/L (45-117); BUN (BLOOD UREA NITROGEN) 33 MG/DL (6-23)
[2016-09-09 09:11] LABS: ANISOCYTOSIS 1+ (5-10/OIF) (0-5/OIF); BAND NEUTROPHILS 6 %; BASOPHILS 1 %; BASOPHILS ABSOLUTE (CALC) 0.11 10/3/uL (0.0-0.16); EOSINOPHILS 2 %; EOSINOPHILS ABSOLUTE (CALC) 0.23 10/3/uL (0.0-0.53); IMMATURE GRANS ABSOLUTE (CALC) 0.34 10/3/uL (0.0-0.11); LYMPHOCYTES 17 %; LYMPHOCYTES ABSOLUTE (CALC) 1.94 10/3/uL (0.67-4.30); METAMYELOCYTES 3 %; MONOCYTES 4 %; MONOCYTES ABSOLUTE (CALC) 0.46 10/3/uL (0.21-1.20); NEUTROPHILS ABSOLUTE (CALC) 8.32 10/3/uL (2.02-8.40); PLATELET ESTIMATE SLT INC (ADEQUATE); POLYCHROMASIA 1+ (2-5/OIF) (0-1/OIF); SEGMENTED NEUTROPHIL (0) 67 %; TOTAL NUCLEATED CELLS 100; TOXIC GRANULATION 1+
[2016-09-09 10:14] LABS: PREALBUMIN 13.7 MG/DL (17.0-43.0)
[2016-09-10 09:18] LABS: HEMATOCRIT 25.7 % (36.0-48.0); HEMOGLOBIN 7.9 g/dL (12.0-16.0); MEAN CORPUS HGB CONC 30.7 g/dL (32.0-36.0); MEAN CORPUSCULAR HEMOGLOB 25.4 pg (26.0-34.0); MEAN CORPUSCULAR VOLUME 82.6 fL (80-100); MEAN PLATELET VOLUME 8.9 fL (9.2-13.0); PLATELET COUNT 474 10/3/uL (150-400); RBC DISTRIBUTION WIDTH 17.6 % (12.0-16.0); RED CELL COUNT 3.11 10/6/uL (4.0-5.6); WHITE BLOOD CELLS 9.3 10/3/uL (4.5-10.5)
[2016-09-10 09:20] LABS: MANUAL DIFF YES %
[2016-09-10 09:39] LABS: BUN (BLOOD UREA NITROGEN) 30 MG/DL (6-23); CALCIUM, SERUM 7.8 MG/DL (8.5-10.4); CHLORIDE, SERUM 107 MMOL/L (96-112); CO2 (CARBON DIOXIDE) 26 MMOL/L (24-34); CREATININE 0.88 MG/DL (0.55-1.02); GFR AFRICAN AMERICAN 82 ML/MIN (>=60); GFR NON AFRICAN AMERICAN 71 ML/MIN (>=60); GLUCOSE, SERUM 90 MG/DL (60-99); POTASSIUM, SERUM 5.2 MMOL/L (3.5-5.3); SODIUM, SERUM 141 MMOL/L (135-148)
[2016-09-10 10:10] LABS: EOSINOPHILS 9 %; EOSINOPHILS ABSOLUTE (CALC) 0.84 10/3/uL (0.0-0.53); IMMATURE GRANS ABSOLUTE (CALC) 0.37 10/3/uL (0.0-0.11); LYMPHOCYTES 24 %; LYMPHOCYTES ABSOLUTE (CALC) 2.23 10/3/uL (0.67-4.30); METAMYELOCYTES 4 %; MONOCYTES 10 %; MONOCYTES ABSOLUTE (CALC) 0.93 10/3/uL (0.21-1.20); NEUTROPHILS ABSOLUTE (CALC) 4.93 10/3/uL (2.02-8.40); SEGMENTED NEUTROPHIL (0) 53 %; TOTAL NUCLEATED CELLS 100
[2016-09-10 10:11] LABS: ANISOCYTOSIS 1+ (5-10/OIF) (0-5/OIF); HYPOCHROMIA 1+ (3-10/OIF) (0-2/OIF); PLATELET ESTIMATE SLT INC (ADEQUATE)
[2016-09-11 08:35] LABS: BUN (BLOOD UREA NITROGEN) 29 MG/DL (6-23); CALCIUM, SERUM 7.7 MG/DL (8.5-10.4); CHLORIDE, SERUM 113 MMOL/L (96-112); CO2 (CARBON DIOXIDE) 23 MMOL/L (24-34); CREATININE 0.79 MG/DL (0.55-1.02); GFR AFRICAN AMERICAN 94 ML/MIN (>=60); GFR NON AFRICAN AMERICAN 81 ML/MIN (>=60); POTASSIUM, SERUM 5.5 MMOL/L (3.5-5.3); SODIUM, SERUM 145 MMOL/L (135-148)
[2016-09-11 08:38] LABS: GLUCOSE, SERUM 150 MG/DL (60-99)
[2016-09-11 09:00] LABS: HEMOGLOBIN 7.3 g/dL (12.0-16.0); MEAN CORPUS HGB CONC 30.4 g/dL (32.0-36.0); MEAN CORPUSCULAR HEMOGLOB 25.4 pg (26.0-34.0); MEAN CORPUSCULAR VOLUME 83.6 fL (80-100); MEAN PLATELET VOLUME 9.1 fL (9.2-13.0); PLATELET COUNT 433 10/3/uL (150-400); RBC DISTRIBUTION WIDTH 17.6 % (12.0-16.0); RED CELL COUNT 2.87 10/6/uL (4.0-5.6); WHITE BLOOD CELLS 6.7 10/3/uL (4.5-10.5)
[2016-09-11 09:02] LABS: MANUAL DIFF YES %
[2016-09-11 09:20] LABS: EOSINOPHILS 1 %; EOSINOPHILS ABSOLUTE (CALC) 0.07 10/3/uL (0.0-0.53); IMMATURE GRANS ABSOLUTE (CALC) 0.07 10/3/uL (0.0-0.11); LYMPHOCYTES 30 %; LYMPHOCYTES ABSOLUTE (CALC) 2.01 10/3/uL (0.67-4.30); METAMYELOCYTES 1 %; MONOCYTES 3 %; NEUTROPHILS ABSOLUTE (CALC) 4.36 10/3/uL (2.02-8.40); SEGMENTED NEUTROPHIL (0) 65 %; TOTAL NUCLEATED CELLS 100
[2016-09-11 09:21] LABS: ANISOCYTOSIS 1+ (5-10/OIF) (0-5/OIF); HYPOCHROMIA 1+ (3-10/OIF) (0-2/OIF); PLATELET ESTIMATE SLT INC (ADEQUATE)
[2016-09-12 08:48] LABS: BUN (BLOOD UREA NITROGEN) 27 MG/DL (6-23); CHLORIDE, SERUM 109 MMOL/L (96-112); CO2 (CARBON DIOXIDE) 27 MMOL/L (24-34); CREATININE 0.88 MG/DL (0.55-1.02); GFR AFRICAN AMERICAN 82 ML/MIN (>=60); GFR NON AFRICAN AMERICAN 71 ML/MIN (>=60); GLUCOSE, SERUM 149 MG/DL (60-99); POTASSIUM, SERUM 5.1 MMOL/L (3.5-5.3); SODIUM, SERUM 143 MMOL/L (135-148)
[2016-09-12 08:49] LABS: CALCIUM, SERUM 8.9 MG/DL (8.5-10.4)
[2016-09-13 07:20] LABS: HEMATOCRIT 24.6 % (36.0-48.0); HEMOGLOBIN 7.6 g/dL (12.0-16.0); MANUAL DIFF YES %; MEAN CORPUS HGB CONC 30.9 g/dL (32.0-36.0); MEAN CORPUSCULAR HEMOGLOB 25.7 pg (26.0-34.0); MEAN CORPUSCULAR VOLUME 83.1 fL (80-100); PLATELET COUNT 413 10/3/uL (150-400); RBC DISTRIBUTION WIDTH 18.2 % (12.0-16.0); RED CELL COUNT 2.96 10/6/uL (4.0-5.6); WHITE BLOOD CELLS 6.2 10/3/uL (4.5-10.5)
[2016-09-13 07:35] LABS: BUN (BLOOD UREA NITROGEN) 29 MG/DL (6-23); CALCIUM, SERUM 8.4 MG/DL (8.5-10.4); CHLORIDE, SERUM 106 MMOL/L (96-112); CO2 (CARBON DIOXIDE) 30 MMOL/L (24-34); CREATININE 0.82 MG/DL (0.55-1.02); GFR AFRICAN AMERICAN 90 ML/MIN (>=60); GFR NON AFRICAN AMERICAN 77 ML/MIN (>=60); GLUCOSE, SERUM 190 MG/DL (60-99); POTASSIUM, SERUM 4.9 MMOL/L (3.5-5.3); SODIUM, SERUM 139 MMOL/L (135-148); VANCOMYCIN TROUGH 19.9 MCG/ML (10.0-20.0)
[2016-09-13 07:42] LABS: BAND NEUTROPHILS 6 %; BASOPHILS 2 %; BASOPHILS ABSOLUTE (CALC) 0.12 10/3/uL (0.0-0.16); EOSINOPHILS 4 %; EOSINOPHILS ABSOLUTE (CALC) 0.25 10/3/uL (0.0-0.53); IMMATURE GRANS ABSOLUTE (CALC) 0.06 10/3/uL (0.0-0.11); LYMPHOCYTES 38 %; LYMPHOCYTES ABSOLUTE (CALC) 2.36 10/3/uL (0.67-4.30); METAMYELOCYTES 1 %; MONOCYTES 8 %; NEUTROPHILS ABSOLUTE (CALC) 2.91 10/3/uL (2.02-8.40); SEGMENTED NEUTROPHIL (0) 41 %; TOTAL NUCLEATED CELLS 100
[2016-09-13 07:43] LABS: ANISOCYTOSIS 1+ (5-10/OIF) (0-5/OIF); MICROCYTES 1+ (5-10/OIF) (0-5/OIF); PLATELET ESTIMATE SLT INC (ADEQUATE)
[2016-09-14 06:39] LABS: BASOPHILS ABSOLUTE 0.07 10/3/uL (0.0-0.16); EOSINOPHILS 2.5 %; EOSINOPHILS ABSOLUTE 0.17 10/3/uL (0.0-0.53); HEMATOCRIT 23.1 % (36.0-48.0); HEMOGLOBIN 7.2 g/dL (12.0-16.0); IMMATURE GRANULOCYTES 1.3 %; IMMATURE GRANULOCYTES ABSOLUTE 0.09 10/3/uL (0.0-0.11); LYMPHOCYTES 29.5 %; MANUAL DIFF NO %; MEAN CORPUS HGB CONC 31.2 g/dL (32.0-36.0); MEAN CORPUSCULAR VOLUME 83.4 fL (80-100); MONOCYTES 6.6 %; MONOCYTES ABSOLUTE 0.45 10/3/uL (0.21-1.20); NEUTROPHILS 59.1 %; NEUTROPHILS ABSOLUTE 4.01 10/3/uL (2.02-8.40); PLATELET COUNT 400 10/3/uL (150-400); RBC DISTRIBUTION WIDTH 18.5 % (12.0-16.0); RED CELL COUNT 2.77 10/6/uL (4.0-5.6); WHITE BLOOD CELLS 6.8 10/3/uL (4.5-10.5)
[2016-09-14 06:51] LABS: BUN (BLOOD UREA NITROGEN) 28 MG/DL (6-23); CALCIUM, SERUM 8.3 MG/DL (8.5-10.4); CHLORIDE, SERUM 108 MMOL/L (96-112); CO2 (CARBON DIOXIDE) 28 MMOL/L (24-34); CREATININE 0.73 MG/DL (0.55-1.02); GFR AFRICAN AMERICAN 103 ML/MIN (>=60); GFR NON AFRICAN AMERICAN 89 ML/MIN (>=60); GLUCOSE, SERUM 108 MG/DL (60-99); SODIUM, SERUM 142 MMOL/L (135-148)
[2016-09-15 06:46] LABS: BASOPHILS 0.9 %; BASOPHILS ABSOLUTE 0.06 10/3/uL (0.0-0.16); EOSINOPHILS 2.1 %; EOSINOPHILS ABSOLUTE 0.14 10/3/uL (0.0-0.53); HEMATOCRIT 22.2 % (36.0-48.0); IMMATURE GRANULOCYTES 0.8 %; IMMATURE GRANULOCYTES ABSOLUTE 0.05 10/3/uL (0.0-0.11); LYMPHOCYTES 28.2 %; LYMPHOCYTES ABSOLUTE 1.87 10/3/uL (0.67-4.30); MEAN CORPUS HGB CONC 30.6 g/dL (32.0-36.0); MEAN CORPUSCULAR HEMOGLOB 25.9 pg (26.0-34.0); MEAN CORPUSCULAR VOLUME 84.4 fL (80-100); MEAN PLATELET VOLUME 9.2 fL (9.2-13.0); NEUTROPHILS ABSOLUTE 4.11 10/3/uL (2.02-8.40); PLATELET COUNT 375 10/3/uL (150-400); RBC DISTRIBUTION WIDTH 18.8 % (12.0-16.0); RED CELL COUNT 2.63 10/6/uL (4.0-5.6); WHITE BLOOD CELLS 6.6 10/3/uL (4.5-10.5)
[2016-09-15 06:47] LABS: HEMOGLOBIN 6.8 g/dL (12.0-16.0); MANUAL DIFF NO %
[2016-09-15 06:57] LABS: BUN (BLOOD UREA NITROGEN) 29 MG/DL (6-23); CALCIUM, SERUM 8.9 MG/DL (8.5-10.4); CHLORIDE, SERUM 107 MMOL/L (96-112); CO2 (CARBON DIOXIDE) 29 MMOL/L (24-34); CREATININE 0.77 MG/DL (0.55-1.02); GFR AFRICAN AMERICAN 97 ML/MIN (>=60); GFR NON AFRICAN AMERICAN 83 ML/MIN (>=60); POTASSIUM, SERUM 5.3 MMOL/L (3.5-5.3); SODIUM, SERUM 141 MMOL/L (135-148)
[2016-09-15 06:59] LABS: GLUCOSE, SERUM 270 MG/DL (60-99)
[2016-09-16 04:54] LABS: BASOPHILS 0.8 %; BASOPHILS ABSOLUTE 0.06 10/3/uL (0.0-0.16); EOSINOPHILS 2.1 %; EOSINOPHILS ABSOLUTE 0.16 10/3/uL (0.0-0.53); HEMATOCRIT 24.2 % (36.0-48.0); HEMOGLOBIN 7.5 g/dL (12.0-16.0); IMMATURE GRANULOCYTES 0.8 %; IMMATURE GRANULOCYTES ABSOLUTE 0.06 10/3/uL (0.0-0.11); LYMPHOCYTES 23.3 %; LYMPHOCYTES ABSOLUTE 1.77 10/3/uL (0.67-4.30); MEAN PLATELET VOLUME 9.2 fL (9.2-13.0); MONOCYTES 7.6 %; MONOCYTES ABSOLUTE 0.58 10/3/uL (0.21-1.20); NEUTROPHILS 65.4 %; NEUTROPHILS ABSOLUTE 4.98 10/3/uL (2.02-8.40); PLATELET COUNT 396 10/3/uL (150-400); RBC DISTRIBUTION WIDTH 19.2 % (12.0-16.0); RED CELL COUNT 2.88 10/6/uL (4.0-5.6); WHITE BLOOD CELLS 7.6 10/3/uL (4.5-10.5)
[2016-09-16 04:55] LABS: MANUAL DIFF NO %
[2016-09-16 05:11] LABS: A/G RATIO 0.5 (0.7-1.9); ALBUMIN 1.9 G/DL (3.5-5.0); ALKALINE PHOSPHATASE 104 U/L (45-117); BUN (BLOOD UREA NITROGEN) 28 MG/DL (6-23); CALCIUM, SERUM 8.9 MG/DL (8.5-10.4); CHLORIDE, SERUM 106 MMOL/L (96-112); CO2 (CARBON DIOXIDE) 29 MMOL/L (24-34); CREATININE 0.73 MG/DL (0.55-1.02); FERRITIN 178 NG/ML (8-252); GFR AFRICAN AMERICAN 103 ML/MIN (>=60); GFR NON AFRICAN AMERICAN 89 ML/MIN (>=60); GLOBULIN 3.9 G/DL (2.5-4.1); IRON BINDING CAPACITY 148 MCG/DL (225-410); IRON, SERUM 28 MCG/DL (35-150); POTASSIUM, SERUM 5.1 MMOL/L (3.5-5.3); PREALBUMIN 16.8 MG/DL (17.0-43.0); SGOT(AST) 11 U/L (5-40); SGPT(ALT) 9 U/L (5-65); SODIUM, SERUM 141 MMOL/L (135-148); TOTAL BILIRUBIN 0.2 MG/DL (0-1.2); TOTAL PROTEIN 5.8 G/DL (6.0-8.5)
[2016-09-16 05:14] LABS: GLUCOSE, SERUM 145 MG/DL (60-99); PHOSPHORUS, SERUM 5.3 MG/DL (2.5-4.5)
[2016-09-16 16:30] LABS: HEMATOCRIT 32.2 % (36.0-48.0); HEMOGLOBIN 10.3 g/dL (12.0-16.0)
[2016-09-17 05:26] LABS: BUN (BLOOD UREA NITROGEN) 26 MG/DL (6-23); CALCIUM, SERUM 8.3 MG/DL (8.5-10.4); CHLORIDE, SERUM 106 MMOL/L (96-112); CO2 (CARBON DIOXIDE) 29 MMOL/L (24-34); CREATININE 0.69 MG/DL (0.55-1.02); GFR AFRICAN AMERICAN 109 ML/MIN (>=60); GFR NON AFRICAN AMERICAN 94 ML/MIN (>=60); POTASSIUM, SERUM 4.7 MMOL/L (3.5-5.3); SODIUM, SERUM 143 MMOL/L (135-148)
[2016-09-17 05:30] LABS: GLUCOSE, SERUM 81 MG/DL (60-99)
[2016-09-17 05:31] LABS: BASOPHILS 0.6 %; BASOPHILS ABSOLUTE 0.04 10/3/uL (0.0-0.16); EOSINOPHILS 2.6 %; EOSINOPHILS ABSOLUTE 0.18 10/3/uL (0.0-0.53); HEMATOCRIT 29.2 % (36.0-48.0); HEMOGLOBIN 9.3 g/dL (12.0-16.0); IMMATURE GRANULOCYTES 0.4 %; IMMATURE GRANULOCYTES ABSOLUTE 0.03 10/3/uL (0.0-0.11); LYMPHOCYTES 29.7 %; LYMPHOCYTES ABSOLUTE 2.09 10/3/uL (0.67-4.30); MEAN CORPUS HGB CONC 31.8 g/dL (32.0-36.0); MEAN CORPUSCULAR HEMOGLOB 26.5 pg (26.0-34.0); MEAN CORPUSCULAR VOLUME 83.2 fL (80-100); MEAN PLATELET VOLUME 9.6 fL (9.2-13.0); MONOCYTES 7.7 %; MONOCYTES ABSOLUTE 0.54 10/3/uL (0.21-1.20); NEUTROPHILS ABSOLUTE 4.16 10/3/uL (2.02-8.40); PLATELET COUNT 375 10/3/uL (150-400); RBC DISTRIBUTION WIDTH 17.9 % (12.0-16.0)
[2016-09-17 05:32] LABS: MANUAL DIFF NO %; RED CELL COUNT 3.51 10/6/uL (4.0-5.6)
[2016-09-17 06:53] LABS: PROCALCITONIN 0.13 ng/mL (<0.5)
[2016-09-18 14:53] LABS: BASOPHILS 0.9 %; BASOPHILS ABSOLUTE 0.06 10/3/uL (0.0-0.16); EOSINOPHILS 3.6 %; EOSINOPHILS ABSOLUTE 0.23 10/3/uL (0.0-0.53); HEMATOCRIT 31.6 % (36.0-48.0); IMMATURE GRANULOCYTES 0.3 %; IMMATURE GRANULOCYTES ABSOLUTE 0.02 10/3/uL (0.0-0.11); LYMPHOCYTES 28.4 %; MEAN CORPUS HGB CONC 31.6 g/dL (32.0-36.0); MEAN CORPUSCULAR VOLUME 85.4 fL (80-100); MEAN PLATELET VOLUME 9.7 fL (9.2-13.0); MONOCYTES 9.6 %; MONOCYTES ABSOLUTE 0.61 10/3/uL (0.21-1.20); NEUTROPHILS 57.2 %; NEUTROPHILS ABSOLUTE 3.61 10/3/uL (2.02-8.40); PLATELET COUNT 334 10/3/uL (150-400); RBC DISTRIBUTION WIDTH 18.3 % (12.0-16.0); WHITE BLOOD CELLS 6.3 10/3/uL (4.5-10.5)
[2016-09-18 14:54] LABS: MANUAL DIFF NO %
[2016-09-19 07:02] LABS: BASOPHILS 1.2 %; BASOPHILS ABSOLUTE 0.07 10/3/uL (0.0-0.16); EOSINOPHILS 4.7 %; EOSINOPHILS ABSOLUTE 0.28 10/3/uL (0.0-0.53); HEMATOCRIT 33.1 % (36.0-48.0); HEMOGLOBIN 10.2 g/dL (12.0-16.0); IMMATURE GRANULOCYTES 0.3 %; IMMATURE GRANULOCYTES ABSOLUTE 0.02 10/3/uL (0.0-0.11); LYMPHOCYTES 34.9 %; LYMPHOCYTES ABSOLUTE 2.08 10/3/uL (0.67-4.30); MEAN CORPUS HGB CONC 30.8 g/dL (32.0-36.0); MEAN CORPUSCULAR HEMOGLOB 26.8 pg (26.0-34.0); MEAN CORPUSCULAR VOLUME 87.1 fL (80-100); MEAN PLATELET VOLUME 9.4 fL (9.2-13.0); MONOCYTES 8.7 %; MONOCYTES ABSOLUTE 0.52 10/3/uL (0.21-1.20); NEUTROPHILS 50.2 %; NEUTROPHILS ABSOLUTE 2.99 10/3/uL (2.02-8.40); PLATELET COUNT 332 10/3/uL (150-400); RBC DISTRIBUTION WIDTH 18.3 % (12.0-16.0)
[2016-09-19 07:12] LABS: MANUAL DIFF NO %
[2016-09-20 06:26] LABS: BASOPHILS 1.7 %; BASOPHILS ABSOLUTE 0.12 10/3/uL (0.0-0.16); EOSINOPHILS 4.9 %; EOSINOPHILS ABSOLUTE 0.34 10/3/uL (0.0-0.53); HEMATOCRIT 35.3 % (36.0-48.0); HEMOGLOBIN 11.1 g/dL (12.0-16.0); IMMATURE GRANULOCYTES 0.7 %; IMMATURE GRANULOCYTES ABSOLUTE 0.05 10/3/uL (0.0-0.11); LYMPHOCYTES 45.8 %; LYMPHOCYTES ABSOLUTE 3.18 10/3/uL (0.67-4.30); MEAN CORPUS HGB CONC 31.4 g/dL (32.0-36.0); MEAN CORPUSCULAR HEMOGLOB 26.8 pg (26.0-34.0); MEAN CORPUSCULAR VOLUME 85.3 fL (80-100); MEAN PLATELET VOLUME 9.7 fL (9.2-13.0); MONOCYTES 9.2 %; MONOCYTES ABSOLUTE 0.64 10/3/uL (0.21-1.20); NEUTROPHILS 37.7 %; NEUTROPHILS ABSOLUTE 2.62 10/3/uL (2.02-8.40); PLATELET COUNT 354 10/3/uL (150-400); RBC DISTRIBUTION WIDTH 18.1 % (12.0-16.0); RED CELL COUNT 4.14 10/6/uL (4.0-5.6)
[2016-09-20 06:28] LABS: MANUAL DIFF NO %
== END 2016-09-20 13:25 | DRG 698 ==
LOC: ER 14:16 → IMCU 16:10 → 5SO 09-03 19:04
PROVIDERS: Emergency Medicine; Hospitalist; Internal Medicine; Nurse Practitioner Acute Care; Nurse Practitioner Family
PROC: 30233N1 Transfusion of Nonautologous Red Blood Cells into Peripheral Vein, Percutaneous Approach (ICD-10-PCS; principal; 2016-09-01)
DX: T83.518A Infection and inflammatory reaction due to other urinary catheter, initial encounter (principal); A41.51 Sepsis due to Escherichia coli [E. coli]; E43 Unspecified severe protein-calorie malnutrition; G93.40 Encephalopathy, unspecified; N17.9 Acute kidney failure, unspecified; L89.214 Pressure ulcer of right hip, stage 4; L89.224 Pressure ulcer of left hip, stage 4; G11.1 Early-onset cerebellar ataxia; R65.20 Severe sepsis without septic shock; N39.0 Urinary tract infection, site not specified; E11.65 Type 2 diabetes mellitus with hyperglycemia; Z93.1 Gastrostomy status; Z93.3 Colostomy status; Z90.6 Acquired absence of other parts of urinary tract; Z93.6 Other artificial openings of urinary tract status; Z88.0 Allergy status to penicillin; Z88.2 Allergy status to sulfonamides; Z88.1 Allergy status to other antibiotic agents; Z79.899 Other long term (current) drug therapy; Z79.4 Long term (current) use of insulin; Z79.02 Long term (current) use of antithrombotics/antiplatelets; D64.9 Anemia, unspecified; F44.4 Conversion disorder with motor symptom or deficit; F41.9 Anxiety disorder, unspecified; I10 Essential (primary) hypertension; D63.8 Anemia in other chronic diseases classified elsewhere; Z51.5 Encounter for palliative care
CPT/HCPCS: 36415; 36600; 70450; 71010; 80048; 80053; 80069; 80076; 80202; 81001; 82140; 82533; 82570; 82607; 82728; 82746; 82805; 82962; 83036; 83540; 83550; 83605; 83615; 83735; 83880; 83935; 84100; 84134; 84145; 84300; 84439; 84443; 84484; 85014; 85018; 85025; 85610; 85730; 86850; 86870; 86900; 86901; 86902; 86905; 86920; 86922; 87040; 87070; 87077; 87086; 87186; 87205; 87641; 92610-GN; 93005; 93970; 94640; 99291; A9270-GY; J0692; J1940; J2185; J3370; J3411; P9016; P9047

== ENCOUNTER 2016-10-27 20:12 | Emergency (ER) | payer BC ==
[~2016-10-27 20:12] MED LIST changes: +8 HOUR650 MG PEG; +ACETSUP650 PR; +ATV.5 PEG; +FLORASTOR250 MG PEG; +LEVAQUIN750 MG PEG; +MULTIVIT/MIN PEG; +NORCO1 TA1 PEG; +PAX20 PEG; +PEP20 PEG; +PLAVIX PEG; +REM15 PEG; +ROCEPH IM; +XARELTO20 MG PEG
[2016-10-27 20:46] LABS: BASOPHILS 0.5 %; BASOPHILS ABSOLUTE 0.06 10/3/uL (0.0-0.16); EOSINOPHILS 6.7 %; EOSINOPHILS ABSOLUTE 0.82 10/3/uL (0.0-0.53); IMMATURE GRANULOCYTES 1.2 %; IMMATURE GRANULOCYTES ABSOLUTE 0.15 10/3/uL (0.0-0.11); LYMPHOCYTES ABSOLUTE 1.72 10/3/uL (0.67-4.30); MEAN CORPUS HGB CONC 31.2 g/dL (32.0-36.0); MEAN CORPUSCULAR HEMOGLOB 26.1 pg (26.0-34.0); MEAN CORPUSCULAR VOLUME 83.6 fL (80-100); MEAN PLATELET VOLUME 8.9 fL (9.2-13.0); MONOCYTES 5.3 %; MONOCYTES ABSOLUTE 0.65 10/3/uL (0.21-1.20); NEUTROPHILS 72.3 %; NEUTROPHILS ABSOLUTE 8.87 10/3/uL (2.02-8.40); RBC DISTRIBUTION WIDTH 19.1 % (12.0-16.0)
[2016-10-27 20:47] LABS: ER CBC TAT 0 Hrs 08 Mins; HEMOGLOBIN 7.8 g/dL (12.0-16.0); MANUAL DIFF NO %; PLATELET COUNT 557 10/3/uL (150-400); RED CELL COUNT 2.99 10/6/uL (4.0-5.6); WHITE BLOOD CELLS 12.3 10/3/uL (4.5-10.5)
[2016-10-27 20:55] LABS: INTERNATIONAL NORMAL RATI 1.1 UNITS (-)
[2016-10-27 20:56] LABS: PARTIAL THROMBO TIME 33.2 SEC (22.5-37.2)
[2016-10-27 20:57] LABS: PROTIME (NOT ORD) 14.3 SEC (12.0-14.5)
[2016-10-27 20:58] LABS: ASCORBIC ACID (UR NOT ORDER) NEG (NEG); BILIRUBIN, URINE NEGATIVE (NEG); ER URINALYSIS TAT 0 Hrs 00 Mins; KETONE, URINE NEGATIVE (NEG); LEUKOCYTE ESTERASE(NOT OR LARGE (NEG); NITRITE (URINE) POS (NEG); WBC (NOT ORDERED) (RFLEX) 10 (0-5)
[2016-10-27 21:03] LABS: ALKALINE PHOSPHATASE 107 U/L (45-117); CHLORIDE, SERUM 103 MMOL/L (96-112); CREATININE 1.12 MG/DL (0.55-1.02); GFR AFRICAN AMERICAN 61 ML/MIN (>=60); GFR NON AFRICAN AMERICAN 53 ML/MIN (>=60); POTASSIUM, SERUM 5.3 MMOL/L (3.5-5.3); SGOT(AST) 9 U/L (5-40); SGPT(ALT) 11 U/L (5-65); TOTAL BILIRUBIN 0.2 MG/DL (0-1.2)
[2016-10-27 21:04] LABS: A/G RATIO 0.5 (0.7-1.9); ALBUMIN 2.7 G/DL (3.5-5.0); BUN (BLOOD UREA NITROGEN) 93 MG/DL (6-23); CALCIUM, SERUM 9.4 MG/DL (8.5-10.4); CO2 (CARBON DIOXIDE) 22 MMOL/L (24-34); GLUCOSE, SERUM 178 MG/DL (60-99); SODIUM, SERUM 133 MMOL/L (135-148); TOTAL PROTEIN 7.7 G/DL (6.0-8.5)
[2016-10-27 21:06] LABS: BAND NEUTROPHILS 3 %; BASOPHILS 1 %; BASOPHILS ABSOLUTE (CALC) 0.12 10/3/uL (0.0-0.16); EOSINOPHILS 3 %; EOSINOPHILS ABSOLUTE (CALC) 0.37 10/3/uL (0.0-0.53); ER DIFF TAT 0 Hrs 27 Mins; LYMPHOCYTES 20 %; LYMPHOCYTES ABSOLUTE (CALC) 2.46 10/3/uL (0.67-4.30); MONOCYTES 2 %; MONOCYTES ABSOLUTE (CALC) 0.25 10/3/uL (0.21-1.20); SEGMENTED NEUTROPHIL (0) 71 %; TOTAL NUCLEATED CELLS 100
[2016-10-27 21:07] LABS: ANISOCYTOSIS 1+ (5-10/OIF) (0-5/OIF); HYPOCHROMIA 1+ (3-10/OIF) (0-2/OIF); PLATELET ESTIMATE SLT INC (ADEQUATE); POLYCHROMASIA 1+ (2-5/OIF) (0-1/OIF)
[2016-10-27 21:25] LABS: PROCALCITONIN 0.26 ng/mL (<0.5)
[2016-10-27 21:36] LABS: LACTATE 2.1 MMOL/L (0.3-2.4)
[2016-10-27] MEDS ORDERED: PEP20 PEG (21:51)
[2016-10-27] MEDS ORDERED: PLAVIX PEG (21:51)
[2016-10-27] MEDS ORDERED: LYRICA150 MG PEG (21:52)
[2016-10-27] MEDS ORDERED: FERROUS SULF325 M1 PEG (21:52)
[2016-10-27] MEDS ORDERED: FLORASTOR250 MG PEG (21:52)
[2016-10-27] MEDS ORDERED: MULTIVIT/MIN PEG (21:53)
[2016-10-27] MEDS ORDERED: GLUCOPHAGE1000 MG PEG (21:53)
[2016-10-27] MEDS ORDERED: ASAB PEG (21:54)
[2016-10-27] MEDS ORDERED: FLONASE NAS (21:54)
[2016-10-27] MEDS ORDERED: FOLIC PEG (21:54)
[2016-10-27] MEDS ORDERED: XARELTO20 MG PEG (21:56)
[2016-10-27] MEDS ORDERED: PAX20 PEG (21:57)
[2016-10-27] MEDS ORDERED: NORCO1 TA2 PEG (21:58)
[2016-10-27] MEDS ORDERED: CIP5 PEG (21:59)
[2016-10-27] MEDS ORDERED: LANTUS SC (21:59)
[2016-10-27] MEDS ORDERED: NOVOLOG SC (22:01)
[2016-10-27] MEDS ORDERED: B121000P IM/SC (22:02)
[2016-10-27] MEDS ORDERED: SANTYL OINTMENT TOP ×2 (22:06→22:14)
[2016-10-27] MEDS ORDERED: 8 HOUR650 MG PEG (22:07)
[2016-10-27] MEDS ORDERED: ATV.5 PEG (22:07)
[2016-10-27] MEDS ORDERED: ACETSUP650 PR (22:08)
[2016-10-27] MEDS ORDERED: ALBUTEROL0.083 % INH (22:08)
[2016-10-27] MEDS ORDERED: NORCO1 TA1 PEG (22:09)
[2016-10-27] MEDS ORDERED: SENNA SYRUP PEG (22:11)
[2016-10-27] MEDS ORDERED: DUONEB INH (22:12)
[2016-10-27] MEDS ORDERED: T PEG (22:14)
== END 2016-10-28 01:12 | disposition home or self-care (01) ==
LOC: ER 20:12
PROVIDERS: Nurse Practitioner
DX: N39.0 Urinary tract infection, site not specified (principal); N17.9 Acute kidney failure, unspecified; E11.65 Type 2 diabetes mellitus with hyperglycemia; D64.9 Anemia, unspecified; L89.329 Pressure ulcer of left buttock, unspecified stage; L89.319 Pressure ulcer of right buttock, unspecified stage; L89.159 Pressure ulcer of sacral region, unspecified stage; G11.1 Early-onset cerebellar ataxia; I10 Essential (primary) hypertension; Z95.5 Presence of coronary angioplasty implant and graft; F32.9 Major depressive disorder, single episode, unspecified; F41.9 Anxiety disorder, unspecified; Z93.2 Ileostomy status; Z93.3 Colostomy status; Z98.51 Tubal ligation status; Z88.0 Allergy status to penicillin; Z88.2 Allergy status to sulfonamides; Z88.1 Allergy status to other antibiotic agents; Z79.84 Long term (current) use of oral hypoglycemic drugs; Z79.82 Long term (current) use of aspirin; Z79.899 Other long term (current) drug therapy; Z79.891 Long term (current) use of opiate analgesic; Z79.4 Long term (current) use of insulin
CPT/HCPCS: 31720; 71010; 80053; 81001; 82009; 83605; 84145; 85025; 85610; 85730; 87040; 87070; 87077; 87086; 87186; 87205; 93005; 99285